=== PATIENT | female | born 1995 | race Caucasian/White ===

== ENCOUNTER 2018-06-22 08:40 | Outpatient (CLI) | payer OTHER ==
[~2018-06-22] VITALS: Ht 160 cm; Wt 86.6 kg
[~2018-06-22 08:40] MED LIST: CIPR500T4 PO; HYDR-3498 PO; IBUP-1542 PO; ONDA4TAB14 PO; ONDA4TAB8 PO
[2018-06-22 08:53] VITALS: BP 124/67; RESP 17; Ht 160 cm; Wt 86.6 kg
--- NOTE | 2018-06-22 10:38 | PN ---
Triage Information Date/Time Reason for visit: labor Weeks of Gestation 21+ /Para 5/1 Diabetes: none Hypertention: none Objective Vital Signs Date Temp Pulse Resp B/P (MAP) Pulse Ox O2 O2 Flow FiO2 Time Delivery Rate 06/22/18 97.5 17 124/67 08:53 (86) Contractions: None Results/Medications Results 24 hrs Laboratory Tests Test 06/22/18 09:03 Membranes Rupture NEGATIVE Disposition: Discharge Assessment/Plan Ultasound reviewed Labs reviewed Precautions discussed Questions answered Follow up with provider EMERITA BRUNO M.D. Jun 22, 2018 10:38
--- NOTE | 2018-06-22 10:42 | TRIAGE ---
OB Triage Datetime Report Generated by CPN: 06/22/2018 10:42 Datetime: 06/22/2018 10:31 Pattern: Normal: <= 5 Contractions in 10 Minutes Resting Tone [place]: Relaxed Contraction Comments: no uc Datetime: 06/22/2018 09:30 Labor Evaluation Monitor Mode: Palpation Pattern: Normal: <= 5 Contractions in 10 Minutes Resting Tone [place]: Relaxed Contraction Comments: no uc Datetime: 06/22/2018 09:16 Assessment Type: Triage Maternal Assessment Level of Consciousness: Fully Conscious DTR's/Clonus: DTRs 2+; No Clonus Headache: Denies Blurred Vision: No Respiratory Effort: Unlabored; Regular Rhythm; Equal Expansion Breath Sounds, Left: Clear and Equal Breath Sounds, Right: Clear and Equal Nausea/Vomiting: Denies RUQ Epigastric Pain: Denies Lower Extremities Edema: None Degree: None Upper Extremities Edema: None Degree: None Facial Edema: None Fall Risk Assessment History of Falling: (0) No Secondary Diagnosis: (0) No Ambulatory Aid: (0) Bedrest/Nurse Assist IV Therapy: (0) No Gait: (0) Normal/Bedrest/Immobile Mental Status: (0) Oriented to Own Ability Fall Score: 0 Fall Risk Score Definition: No Risk: No action required Datetime: 06/22/2018 09:14 Time of Arrival: 06/22/2018 08:36 EGA: 21.4 Arrived By: Wheelchair Arrived From: Other Unit in Hospital Chief Complaint: c/o mucus discharge, lower back pain, lower abdominal cramping Movement: Present Contractions: Denies/Absent Rupture of Membranes: Denies Vaginal Bleeding: None Vaginal Discharge: Present Recent Sexual Intercouse: Denies Abdominal Trauma: Not Applicable Patient Complaints: Other Time Provider Notified: 06/22/2018 08:50 Provider Notified: Initial Plan: r/o ptl Datetime: 06/22/2018 08:48 Heart Rate Comments: fhr 153 by doppler Heart Rate Comments: fhr 15
== END 2018-06-22 10:35 | disposition home or self-care (01) ==
LOC: OBT 08:40 → L-D 08:40 → OBT 10:35
PROVIDERS: ATTEND Obstetrics & Gynecology
DX: O60.02 Preterm labor without delivery, second trimester (principal); Z3A.21 21 weeks gestation of pregnancy
CPT/HCPCS: 76815; 76817; 84112; Z7500; G0463

== ENCOUNTER 2018-09-25 13:58 | Emergency (ER) | payer OTHER ==
[~2018-09-25] VITALS: Ht 157.5 cm; Wt 93.6 kg
[2018-09-25 13:59] VITALS: PULSE 114; RESP 18; Ht 157.5 cm; Wt 93.6 kg
[2018-09-25 14:31] VITALS: BP 116/66
[2018-09-25] MEDS ORDERED: ACET325T33 PO (15:29)
--- NOTE | 2018-09-25 15:36 | ERD ---
ER Documentation Chief Complaint Chief Complaint right arm pain and numbness x 1 month, no injury, 35 weeks HPI 23-year-old female 35 weeks presents for right wrist pain x1 month. She states that the pain is 5 out of 10 currently. She states that sometimes the pain is 8/10, intermittent, described as a sharp tingling sensation. The pain radiates up to her elbow at times. Pain is worse with movement. She denies fever chills. Denies chest pain or shortness of breath. Denies abdominal pain, nausea, vomiting. Denies pelvic pain currently. Denies leg pain. No other modifying factors noted. No treatment tried at home. ROS All systems reviewed and are negative except as per history of present illness. Medications Home Meds Active Scripts Acetaminophen* (Tylenol*) 325 Mg Tablet, 325 MG PO Q4H PRN for PAIN AND OR ELEVATED TEMP, #30 TAB Prov:HANNA BOONE DO 09/25/18 Ondansetron (Ondansetron Odt) 4 Mg Tab.rapdis, 4 MG PO Q6H PRN for NAUSEA AND/OR VOMITING, #10 TAB Prov:HARMAN SANTIAGO PA-C 01/15/16 Ibuprofen* (Motrin*) 600 Mg Tab, 600 MG PO Q6H PRN for PAIN AND OR ELEVATED TEMP, #30 TAB Prov:HARMAN SANTIAGO PA-C 01/15/16 Ibuprofen* (Ibuprofen*) 600 Mg Tablet, 600 MG PO Q8, #14 TAB Prov:KATELYN RAMIREZ DO 03/07/15 Hydrocodone Bit-Acetaminophen* (Aiken*) 5-325 Mg Tab, 1 TAB PO Q6 PRN for PAIN, #11 TAB Prov:KATELYN RAMIREZ DO 03/07/15 Ondansetron Hcl* (Zofran*) 4 Mg Tablet, 4 MG PO Q8H PRN for NAUSEA AND/OR VOMITING, #8 TAB Prov:KATELYN RAMIREZ DO 03/07/15 Ciprofloxacin Hcl* (Ciprofloxacin Hcl*) 500 Mg Tablet, 500 MG PO BID for 10 Days, TAB Prov:KATELYN RAMIREZ DO 03/07/15 Allergies Allergies: Coded Allergies: Penicillins (Verified Allergy, Unknown, 01/15/16) PMhx/Soc History of Surgery: Yes ("REMOVED CYST IN UTERUS") Anesthesia Reaction: No Hx Neurological Disorder: No Hx Respiratory Disorders: No Hx Cardiac Disorders: No Hx Psychiatric Problems: No Hx Miscellaneous Medical Probl: Yes () Hx Alcohol Use: No Hx Substance Use: No Hx Tobacco Use: No Smoking Status: Never smoker FmHx Family History: No coronary disease Physical Exam Vitals Vital Signs Date Temp Pulse Resp B/P (MAP) Pulse Ox O2 O2 Flow FiO2 Time Delivery Rate 09/25/18 116/66 14:31 (83) 09/25/18 98.5 114 18 145/76 99 13:59 (99) Physical Exam Const: No acute distress Resp: Clear to auscultation bilaterally Cardio: Regular rate and rhythm, no murmurs Skin: No petechiae or rashes Back: No midline or flank tenderness Neur: Awake and alert Psych: Normal Mood and Affect Upper Extremity -right: Skin: No laceration, or evidence of external trauma Compartments: Soft Motor: Full active range of motion shoulder/elbow/wrist/hand Sensation: Intact shoulder/pinky/middle finger/thumb web space Bones: Nontender humerus/elbow/forearm/wrist/hand, there is tenderness palpation over the right wrist, +tinels sign, +phalen and reverse phalen test Snuffbox: Nontender Joints: No effusion Pulses/Perfusion: 2+ radial, Capillary refill < 2 seconds Procedures/MDM Medical Decision Making: Differential diagnosis includes but not limited to fracture, dislocation, muscle strain, ligamentous sprain, septic joint, osteomyelitis, gout, carpal tunnel syndrome Patient appeared well on physical exam. There was tenderness over the right wrist Patient was neurovascularly intact Patient denies fever, no recent infection, low suspicion for septic joint or osteomyelitis. Physical examination consistent with a right carpal tunnel syndrome. Patient advised regarding conservative treatment. She agrees with plan. Advised to take Tylenol as directed only as needed, advised to use sparingly due to her Patient was provided with a right wrist splint, see procedure note below. Splint Note Type: Right wrist Velcro splint Location: Right wrist Indication: Likely carpal tunnel syndrome Splint Assessment: Neurovascularly intact post splint placement with good fit. Prescription(s): Patient given prescription for supportive medication(s). Patient advised to follow up with PCP in 1-2 days. Patient advised to return to ED for new or worsening symptoms. Patient stable on discharge from the ED. Disclaimer: Inadvertent spelling and grammatical errors are likely due to EHR/dictation software use and do not reflect on the overall quality of patient care. Also, please note that the electronic time recorded on this note does not necessarily reflect the actual time of the patient encounter. Departure Diagnosis: Primary Impression: Right wrist pain Condition: Fair Patient Instructions: What Is Carpal Tunnel Syndrome (CTS)?, Carpal Tunnel S yndrome Prevention Tips Additional Instructions: Call your primary care doctor TOMORROW for an appointment during the next 1-2 days.See the doctor sooner or return here if your condition worsens before your appointment time. Take tylenol only as directed and take sparingly Wrist splint as needed for pain can use wrist splint during the day but recommend using at nighttime Follow up with primary physician if pain does not improve with conservative treatment. HANNA BOONE DO Sep 25, 2018 15:36
== END 2018-09-25 15:39 | disposition home or self-care (01) ==
LOC: FTE 13:58
DX: O99.89 Other specified diseases and conditions complicating pregnancy, childbirth and the puerperium (principal); M25.531 Pain in right wrist; Z3A.35 35 weeks gestation of pregnancy

== ENCOUNTER 2018-10-27 00:35 | Inpatient (IN) | payer OTHER ==
[~2018-10-27] VITALS: Ht 160 cm; Wt 97.1 kg
[~2018-10-27 00:35] MED LIST changes: +ACET325T33 PO; +FER325 PO; +PREN1TAB13 PO
[2018-10-27] MEDS ORDERED: LACTATED RINGER'S 1,000 ML IV PRN (00:43)
[2018-10-27] MEDS ORDERED: CARBOPROST 250 MCG INJ IM PRN (01:00)
[2018-10-27] MEDS ORDERED: LIDOCAINE 1% (MPF) 30 ML INJ INJ PRN (01:00)
[2018-10-27] MEDS ORDERED: METHYLERGONOVINE 0.2 MG INJ IM PRN (01:00)
[2018-10-27] MEDS ORDERED: IBUPROFEN 600 MG TAB PO PRN (01:00)
[2018-10-27] MEDS ORDERED: OXYTOCIN 30 UNITS/LR 500 ML IV SCH ×3 (01:00→13:00)
[2018-10-27] MEDS ORDERED: BUTORPHANOL 2 MG INJ IV PRN (01:00)
[2018-10-27] MEDS ORDERED: MISOPROSTOL 200 MCG TAB PR PRN (01:00)
[2018-10-27] MEDS ORDERED: OXYTOCIN 30 UNITS/LR 500 ML IV PRN (01:00)
[2018-10-27] MEDS: LACTATED RINGER'S 1,000 ML IV SCH ×3 (01:14→19:28)
[2018-10-27 01:45] VITALS: BP 119/62; PULSE 100; RESP 20
[2018-10-27 01:47] VITALS: Ht 160 cm; Wt 97.1 kg
[2018-10-27] MEDS: VANCOMYCIN 1 GM (PMX) 250 ML IVPB SCH ×2 (02:10→14:31)
[2018-10-28] VITALS (11 sets, daily range): BP systolic 94–136; BP diastolic 51–79; PULSE 63–98; RESP 16–20
[2018-10-28] MEDS: LACTATED RINGER'S 1,000 ML IV SCH (00:43)
[2018-10-28] MEDS ORDERED: OXYTOCIN 30 UNITS/LR 500 ML IV SCH (02:45)
[2018-10-28] MEDS ORDERED: ACETAMINOPHEN 325 MG TAB PO PRN ×2 (03:00)
[2018-10-28] MEDS ORDERED: ONDANSETRON 4 MG INJ IV PRN (03:00)
[2018-10-28] MEDS ORDERED: ZOLPIDEM 5 MG TAB PO PRN (03:00)
[2018-10-28] MEDS ORDERED: OXYTOCIN 30 UNITS/LR 500 ML IV PRN (03:00)
[2018-10-28] MEDS ORDERED: CARBOPROST 250 MCG INJ IM PRN (03:00)
[2018-10-28] MEDS ORDERED: NACL 0.9% 3 ML SYG IV SCH (03:00)
[2018-10-28] MEDS ORDERED: LANOLIN HPA 1 PKT TOP PRN (03:00)
[2018-10-28] MEDS ORDERED: DIPHENHYDRAMINE 25 MG CAP PO PRN (03:00)
[2018-10-28] MEDS ORDERED: MISOPROSTOL 200 MCG TAB PR PRN (03:00)
[2018-10-28] MEDS ORDERED: HYDROCODONE/APAP (5/325) TAB PO PRN (03:00)
[2018-10-28] MEDS: WITCH HAZEL/GLYCERIN PAD PR PRN (03:11)
[2018-10-28] MEDS: IBUPROFEN 600 MG TAB PO SCH ×4 (06:00→23:35)
[2018-10-28] MEDS: FERROUS SULFATE (EC) 325 MG TAB PO SCH (09:16)
[2018-10-28] MEDS: SENNA/DOCUSATE NA (8.6MG/50MG) TAB PO SCH ×2 (09:17→19:43)
[2018-10-29 01:07] VITALS: BP 110/65; PULSE 78; RESP 18
[2018-10-29 04:00] VITALS: BP 95/50; PULSE 61; RESP 18
[2018-10-29] MEDS: IBUPROFEN 600 MG TAB PO SCH ×4 (06:12→23:32)
[2018-10-29 08:49] VITALS: BP 112/73; PULSE 72; RESP 18
[2018-10-29] MEDS: SENNA/DOCUSATE NA (8.6MG/50MG) TAB PO SCH ×2 (09:52→21:00)
[2018-10-29] MEDS: FERROUS SULFATE (EC) 325 MG TAB PO SCH (09:52)
[2018-10-29 17:59] VITALS: BP 111/69; PULSE 79; RESP 18
[2018-10-29 19:30] VITALS: BP 117/74; PULSE 78; RESP 18
[2018-10-30 03:51] VITALS: BP 95/46; PULSE 68; RESP 18
[2018-10-30] MEDS: IBUPROFEN 600 MG TAB PO SCH ×2 (06:00→13:22)
[2018-10-30 08:00] VITALS: BP 127/75; PULSE 74; RESP 18
[2018-10-30] MEDS ORDERED: VARICELLA VACCINE LIVE/PF 1,350 UNIT/0.5 ML ML SC* ONE (09:00)
[2018-10-30] MEDS ORDERED: DIPHTH/TET/ACEL PERTUSS (ADULT) 0.5 ML VIAL IM* ONE (09:00)
[2018-10-30] MEDS: SENNA/DOCUSATE NA (8.6MG/50MG) TAB PO SCH (09:00)
[2018-10-30] MEDS ORDERED: MEASLES,MUMPS,RUBELLA VACCINE INJ SC* ONE (09:00)
[2018-10-30] MEDS: FERROUS SULFATE (EC) 325 MG TAB PO SCH (10:09)
[2018-10-30] MEDS: WITCH HAZEL/GLYCERIN PAD PR PRN (13:51)
== END 2018-10-30 15:38 | disposition home or self-care (01) | DRG 807 ==
LOC: OBT 00:35 → L-D 00:35 → OBT 01:20 → L-D 02:13 → PP1 10-28 14:55
PROVIDERS: ADMIT Obstetrics & Gynecology; ATTEND Obstetrics & Gynecology
PROC: 4A1HXCZ Monitoring of Products of Conception, Cardiac Rate, External Approach (ICD-10-PCS; 2018-10-27)
PROC: 10E0XZZ Delivery of Products of Conception, External Approach (ICD-10-PCS; principal; 2018-10-28)
DX: O99.824 Streptococcus B carrier state complicating childbirth (principal); Z37.0 Single live birth; O70.0 First degree perineal laceration during delivery; Z3A.39 39 weeks gestation of pregnancy
CPT/HCPCS: 82565; 84520; 85014; 85018; 85025; 85610; 85730; 86592; 86850; 86900; 86901; 87340; 90716; G0463; J2590; J3370; J7120